=== PATIENT | female | born 1930 | race Hispanic/Latino ===

== ENCOUNTER 2017-09-26 20:57 | Emergency (ER) | payer MEDICARE ==
[~2017-09-26 20:57] MED LIST: AEC81 PO; ALEN70TA47 PO; ENAL10TA PO; GLIP1TAB6 PO; MECL25TA3 PO
[2017-09-26] MEDS ORDERED: KETOROLAC TROMETHAMINE 15MG/ML ONE (21:10)
== END 2017-09-27 00:07 | disposition home or self-care (01) ==
LOC: EDH 20:57
DX: S52.501A Unspecified fracture of the lower end of right radius, initial encounter for closed fracture (principal); S05.31XA Ocular laceration without prolapse or loss of intraocular tissue, right eye, initial encounter; E11.9 Type 2 diabetes mellitus without complications; I10 Essential (primary) hypertension; Z88.6 Allergy status to analgesic agent; Z86.73 Personal history of transient ischemic attack (TIA), and cerebral infarction without residual deficits; W01.0XXA Fall on same level from slipping, tripping and stumbling without subsequent striking against object, initial encounter; Y93.89 Activity, other specified; Y92.89 Other specified places as the place of occurrence of the external cause; Y99.8 Other external cause status
CPT/HCPCS: 29125; 70450; 73090; 73110; 96374; 99284; J1885

== ENCOUNTER 2017-12-21 17:28 | Emergency (ER) | payer MEDICARE ==
[2017-12-21] MEDS ORDERED: ACETAMINOPHEN 325 MG TAB ONE (18:16)
== END 2017-12-21 19:51 | disposition home or self-care (01) ==
LOC: EDH 17:28
DX: S60.221A Contusion of right hand, initial encounter (principal); S00.83XA Contusion of other part of head, initial encounter; E11.9 Type 2 diabetes mellitus without complications; I10 Essential (primary) hypertension; Z86.73 Personal history of transient ischemic attack (TIA), and cerebral infarction without residual deficits; Z88.6 Allergy status to analgesic agent; Z88.8 Allergy status to other drugs, medicaments and biological substances; W18.39XA Other fall on same level, initial encounter; Y93.01 Activity, walking, marching and hiking; Y92.89 Other specified places as the place of occurrence of the external cause; Y99.8 Other external cause status
CPT/HCPCS: 29125; 70450; 72125; 73130; 93005